=== PATIENT | female | born 1990 | race Caucasian/White ===

== ENCOUNTER → 2016-04-17 | Outpatient (CLI) | payer OTHER | LOC: LAB 16:55 | DX: N30.01 Acute cystitis with hematuria (principal); B96.20 Unspecified Escherichia coli [E. coli] as the cause of diseases classified elsewhere ==

== ENCOUNTER → 2016-05-12 | Outpatient (CLI) | payer OTHER | LOC: LAB 15:28 | DX: O03.9 Complete or unspecified spontaneous abortion without complication (principal) ==

== ENCOUNTER → 2016-05-14 | Outpatient (CLI) | payer OTHER | LOC: LAB 08:30 | DX: O03.4 Incomplete spontaneous abortion without complication (principal) ==

== ENCOUNTER → 2016-05-31 | Outpatient (CLI) | payer OTHER | LOC: LAB 12:07 | DX: O03.9 Complete or unspecified spontaneous abortion without complication (principal) ==

== ENCOUNTER → 2016-06-14 | Outpatient (CLI) | payer OTHER | LOC: LAB 15:07 | DX: O03.9 Complete or unspecified spontaneous abortion without complication (principal) ==

== ENCOUNTER → 2016-06-18 | Outpatient (CLI) | payer OTHER | LOC: LAB 10:31 | DX: D64.9 Anemia, unspecified (principal) ==

== ENCOUNTER → 2016-07-26 | Outpatient (CLI) | payer OTHER | LOC: LAB 08:26 | DX: O20.0 Threatened abortion (principal) ==

== ENCOUNTER → 2016-09-26 | Outpatient (CLI) | payer OTHER | LOC: LAB 09:03 | DX: Z87.59 Personal history of other complications of pregnancy, childbirth and the puerperium (principal) ==

== ENCOUNTER → 2016-10-10 | Outpatient (CLI) | payer OTHER | LOC: LAB 08:38 | DX: Z87.59 Personal history of other complications of pregnancy, childbirth and the puerperium (principal) ==

== ENCOUNTER → 2017-04-17 | Outpatient (CLI) | payer OTHER ==
[~2017-04-17] VITALS: Ht 157.5 cm; Wt 67.3 kg
[~2017-04-17] MED LIST: CHILDREN'S ASPI81 M1 PO; IRON90 MG PO; PRENATAL 1 PLUS1 TA2 PO
[2017-04-17 11:55] VITALS: BP 101/79
== END ==
LOC: AMSURD 11:26
DX: R00.0 Tachycardia, unspecified (principal)

== ENCOUNTER → 2017-04-22 | Outpatient (CLI) | payer OTHER ==
[~2017-04-22] VITALS: Ht 157.5 cm; Wt 67.3 kg
[2017-04-22 09:30] VITALS: BP 101/71
== END ==
LOC: AMSURD 09:25
DX: R00.0 Tachycardia, unspecified (principal)

== ENCOUNTER → 2018-09-30 | Outpatient (CLI) | payer OTHER ==
[2017-04-22 09:30] VITALS: BP 101/71
[2018-09-30 11:24] LABS: ALBUMIN 4.5 g/dL (3.5-5.0)
[2018-09-30 11:25] LABS: CALCIUM 9.6 mg/dL (8.3-10.5)
[2018-09-30 11:26] LABS: EOS # 0.1 (0.04-0.40); EOS % 1.4 % (1.0-5.0); HEMATOCRIT 38.7 % (37.0-47.0); LYMPH# 2.3 (1.50-4.00); MEAN CELL VOLUME 84 fl (78-100); MEAN CORPUSCULAR HEMOGLOBIN 28 pg (27-31); MEAN CORPUSCULAR HGB CONC 34 g/dL (33-37); MEAN PLATELET VOLUME 9.7 fl (7.4-10.4); MONO # 0.5 (0.20-0.80); PLATELET COUNT 279 K/mm3 (130-400); RED BLOOD COUNT 4.63 M/mm3 (4.10-5.30); RED CELL DISTRIBUTION WIDTH 12.8 % (11.5-14.5); WHITE BLOOD COUNT 5.9 K/mm3 (4.8-10.8)
[2018-09-30 11:27] LABS: TOTAL PROTEIN 7.6 g/dL (6.4-8.3)
[2018-09-30 11:28] LABS: TOTAL BILIRUBIN 0.9 mg/dL (0.2-1.2)
== END ==
LOC: LAB 11:00
PROVIDERS: Family Medicine
DX: Z01.419 Encounter for gynecological examination (general) (routine) without abnormal findings (principal); E78.5 Hyperlipidemia, unspecified; R53.83 Other fatigue

== ENCOUNTER → 2019-04-01 | Outpatient (CLI) | payer OTHER ==
[2017-04-22 09:30] VITALS: BP 101/71
== END ==
LOC: LAB 13:36
DX: O20.0 Threatened abortion (principal)

== ENCOUNTER 2020-08-07 12:15 | Emergency (ER) | payer BC ==
[2020-08-07] MEDS ORDERED: FISH OIL1 IU PO (12:31)
[2020-08-07] MEDS ORDERED: SEPTRA DS 8001 TAB PO (12:31)
[2020-08-07 13:00] LABS: BASO # 0.03 (0.02-0.10); EOS # 0.09 (0.04-0.40); EOS % 1.2 % (1.0-5.0); HEMATOCRIT 33.9 % (37.0-47.0); HEMOGLOBIN 11.9 g/dL (12.5-16.0); LYMPH# 1.72 (1.50-4.00); MEAN CELL VOLUME 84 fl (78-100); MEAN CORPUSCULAR HEMOGLOBIN 30 pg (27-31); MEAN CORPUSCULAR HGB CONC 35 g/dL (33-37); MEAN PLATELET VOLUME 9.6 fl (7.4-10.4); MONO # 0.53 (0.20-0.80); NEU # 4.94 (1.40-6.50); PLATELET COUNT 218 K/mm3 (130-400); RED BLOOD COUNT 4.03 M/mm3 (4.10-5.30); RED CELL DISTRIBUTION WIDTH 12.1 % (11.5-14.5); WHITE BLOOD COUNT 7.3 K/mm3 (4.8-10.8)
[2020-08-07 13:16] LABS: PH-URINE 6.5 (5.0 - 8.0); URINE APPEARANCE HAZY; URINE BILIRUBIN NEGATIVE (NEGATIVE); URINE BLOOD 250 ery/uL (NEGATIVE); URINE COLOR ORANGE; URINE GLUCOSE NEGATIVE (NEGATIVE); URINE KETONE NEGATIVE (NEGATIVE); URINE LEUKOCYTE ESTERASE 2+ (NEGATIVE); URINE NITRATE NEGATIVE (NEGATIVE); URINE PROTEIN(semi-quant) TRACE mg/dL (NEGATIVE); URINE UROBILINOGEN NORMAL (NORMAL); URINE WBC 16-30 /hpf (0-3)
[2020-08-07] MEDS ORDERED: CEPHALEXIN500 M1 PO (14:57)
[2020-08-07 15:19] VITALS: BP 107/75
== END 2020-08-07 15:20 | disposition home or self-care (01) ==
LOC: ED 12:15
PROVIDERS: Family Medicine
DX: N39.0 Urinary tract infection, site not specified (principal)
CPT/HCPCS: J0696

== ENCOUNTER → 2022-01-11 | Outpatient (CLI) | payer BC ==
[~2022-01-11] MED LIST changes: +CEPHALEXIN500 M1 PO; +FISH OIL1 IU PO; +SEPTRA DS 8001 TAB PO
== END ==
LOC: RAD 07:00
DX: R74.01 Elevation of levels of liver transaminase levels (principal)